=== PATIENT | female | born 1965 | race Caucasian/White ===

== ENCOUNTER 2024-09-30 20:22 | Emergency (ER) | payer SELFPAY ==
[2024-09-30 20:24] VITALS: BP 144/88
--- NOTE | 2024-09-30 21:47 | ED.GENMED ---
History of Present Illness
General
Chief Complaint: Musculo-Skeletal Complaint
Source: patient
Exam Limitations: none
Time Seen by Provider: 09/30/24 21:18
History of Present Illness
History of Present Illness:
This is a 59 year old female that comes in with c/o right knee pain. States that this has been going on for a couple of months. State that she works standing up and when she gets home she puts her legs up. States that she has been taking aspirin,
Ibuprofen, and Tylenol and this is not helping. Denies any falls or injury. Denies any fever, chills, chest pain, SOB, abd pain, nausea, vomiting, diarrhea, headache, dizziness, urinary burning.
Past History
Past History
ED Past Medical History: HTN, NIDDM and Seizures
ED Past Surgical History: , Orthopedic (Carpal tunnel) and Other (Jaw surgery, )
Social History
Tobacco: Non-smoker
Alcohol: Occasional
Drug: None
Personal:
Living: alone
Employment: Employed
Review of Systems
Review of Systems
All Other Systems: ROS reviewed and negative except as documented in HPI and ROS
Constitutional: Reports no symptoms; Denies fever or chills
EENT: Reports no symptoms
Respiratory: Reports no symptoms; Denies cough or trouble breathing
Cardiac: Reports no symptoms; Denies chest pain or palpitations
ABD/GI: Reports no symptoms; Denies abdominal pain, nausea, vomiting or diarrhea
: Reports no symptoms; Denies dysuria, frequency or urgency
Musculoskeletal: Reports joint pain (Right knee pain)
Skin: Reports no symptoms
Neurological: Reports no symptoms; Denies dizzy or headache
Psychiatric: Reports no symptoms
Phy Exam
General Physical Exam
General Presentation: well appearing and no apparent distress
General age: appears stated age
General Skin: warm and dry
General Habitus: normal
General Mental: alert
General Hydration: appears well hydrated
ENT Exam
ENT Exam: TM's normal, pharynx normal and neck supple
Eye Exam
Eye Exam: EOMI
Cardiovascular Exam
Cardiovascular Exam: regular rate/rhythm, no edema, no murmur and normal peripheral pulses
Musculoskeletal Exam
Musculoskeletal Exam: full ROM, no edema and other (Negative for tenderness with palpation)
Skin Exam
Skin Exam: normal color, warm/dry, no rash and no petechia
Psychiatric Exam
Psychiatric Exam: normal mood/affect
Course
Orders/Labs/Results
Orders:
Orders
09/30/24 20:26
CR Knee- Right 4 Or More View* Urgent
Comment:
Reason For Exam: pain
09/30/24 21:39
US Legs, Right [US Periph Venous LOWER Ext RT] Urgent
Comment:
Reason For Exam: pAIN BEHIND KNEE, BARELY ABLE TO WALK ON LEG
Vital Signs
Initial and Last Documented VS:
Initial Vital Signs
Temp Pulse Resp BP Pulse Ox
98.2 F 89 18 144/88 98
09/30/24 20:24 09/30/24 20:24 09/30/24 20:24 09/30/24 20:24 09/30/24 20:24
Last Documented Vital Signs
Temp Pulse Resp BP Pulse Ox
98.2 F 75 18 125/71 97
09/30/24 20:24 09/30/24 23:28 09/30/24 23:28 09/30/24 23:28 09/30/24 23:28
MDM/Problems Addressed
Differential Diagnosis Includes:
DVT, degenerative changes,
MDM/Problems Addressed:
This is a 59 year old female that comes in with c/o right knee that has been going on for a couple of months. States that she is taking Aspirin, Ibuprofen and Tylenol and nothing is helping.
Will get X-ray and US of the leg.
Back into see patient. Explained that she has a Bakers cyst. Will have patient use an skye and do warm compressed to the posterior knee. Patient to follow up with the family doctor for recheck.
Chronic conditions affecting care:
NA
Acute Exacerbation and/or Progression of Chronic Illness:
NA
*Radiology
Radiology exam reviewed: radiology read reviewed (Right knee-No acute osseous abnormality. Progressive moderate degenerative changes of the knee most pronounced in the medial and patellofemoral compartments. US=No sonographic evidence for right
Lower extremity DVT. There is a 3.5 X 0.8X 3.8cm cyst within right popliteal fossa, likely a arias cyst)
*Pulse Oximetry
Patient hypoxic: no
*EKG
Interpreted by ED Provider?: NA
Rate: EKG- N/A
*Sock Boarder Interpretation
Rate: Sock Boarder- N/A
*Critical Care Note
Total Time (30-74mins, 75-104mins- exclusive of procedures): Not Applicable
ED Attending Note
-
Portions of this chart may have been created with voice recognition software.� Occasional wrong word or��sound alike� substitutions may have occurred due to the inherent limitations of voice recognition software.
Discharge Plan
Departure
Patient Disposition: Home (Routine Discharge)
Date of Disposition: 09/30/24
Time of Disposition: 23:54
Patient with high blood pressure during this ER visit?: No
Condition: Good
Covid-19: Not Applicable
Discharge Problem:
Arias's cyst of knee
Instructions: Arias's Cyst (DC), Knee Pain (DC)
Prescriptions:
No Action
aspirin 81 MG tablet,delayed release (DR/EC)
2 tab PO DAILY
calcium carbonate [calcium] 500 MG tablet
500 mg PO DAILY
cholecalciferol (vitamin D3) [Vitamin D3] 400 UNITS tablet
400 units PO DAILY
coenzyme D32-pxiqbtg E 1 CAP capsule
1 cap PO DAILY
Referrals:
NONE,* [Family Provider] -
Activity Restrictions/Additional Instructions:
As discussed, your US show that you have a arias's cyst. You may do warm compress to the knee 3-4 times daily for 20 min. Use the skye wrap when you are up walking around. Follow up with the family doctor for recheck. iF YOU HAVE ANY OTHER CONCERNS
PLEASE RETURN TO THE EMERGENCY ROOM.
Interventions
Interventions:
*Risk Screen - Suicide Last Done: 09/30/24 22:47
*General Assessment Last Done: 09/30/24 20:24
*Neglect/Abuse Screening Last Done: 09/30/24 22:47
*ED COVID-19 Vaccine History Last Done: 09/30/24 22:47
ED-Musculoskeletal Assessment Last Done: 09/30/24 21:37
Discharge Date and Time
Print Language: [id number]
[2024-09-30 23:28] VITALS: BP 125/71
== END 2024-10-01 00:01 | disposition home or self-care (01) ==
LOC: EMR 20:22
PROVIDERS: EMERGENCY PHYSICIAN Student in an Organized Health Care Education/Training Program
DX: M71.21 Synovial cyst of popliteal space [Baker], right knee (principal); I10 Essential (primary) hypertension; E11.9 Type 2 diabetes mellitus without complications; G40.909 Epilepsy, unspecified, not intractable, without status epilepticus; Z79.82 Long term (current) use of aspirin
CPT/HCPCS: 99284; 73564; 93971